=== PATIENT | female | born 1945 | race Caucasian/White ===

== ENCOUNTER 2024-10-13 11:57 | Inpatient (IN) | payer MEDICARE, OTHER ==
[~2024-10-13] VITALS: Ht 165.1 cm; Wt 101.2 kg
[2024-10-13 13:52] LABS: BASOPHILS % (AUTO) 0.4 % (0.0-2.0); EOSINOPHILS % (AUTO) 1.7 % (1.0-6.0); HEMATOCRIT 43.9 % (36-46); HEMOGLOBIN 14.4 g/dL (12.0-16.0); LYMPHOCYTES # (AUTO) 1.6 K/uL (1.0-4.8); LYMPHOCYTES % (AUTO) 26.6 % (22.0-44.0); MEAN CORPUSCULAR HEMOGLOBIN 29.4 pg (26.0-34.0); MEAN CORPUSCULAR HGB CONC 32.9 G/dL (31.0-37.0); MEAN CORPUSCULAR VOLUME 89 fL (80-100); MONOCYTES # (AUTO) 0.4 K/uL (0.1-1.0); MONOCYTES % (AUTO) 7.2 % (2.0-9.0); NEUTROPHILS # (AUTO) 3.9 K/uL (1.8-7.7); NEUTROPHILS % (AUTO) 64.1 % (40.0-70.0); PLATELET COUNT (AUTO) 210 K/uL (150-450); RED BLOOD CELL COUNT(AUTO) 4.91 MIL/uL (4.00-5.20); RED CELL DISTRIBUTION WIDTH 14.2 % (11.5-14.5)
[2024-10-13 13:58] LABS: ANION GAP 5 mmol/L (8-16); CALCIUM, TOTAL 9.7 mg/dL (8.8-10.5); CARBON DIOXIDE 30 mmol/L (22-29); CHLORIDE 108 mmol/L (98-107); CREATININE 0.57 mg/dL (0.60-1.30); GLOMERULAR FILTR. RATE CALC > 60 mL/min (>60); GLUCOSE,RANDOM 121 mg/dL (70-110); POTASSIUM 4.4 mmol/L (3.5-5.1); SODIUM SERUM 143 mmol/L (136-145); UREA NITROGEN, BLOOD 25 mg/dL (7-18)
[2024-10-13 14:03] LABS: APPEARANCE,URINE CLEAR (CLEAR); BILIRUBIN,URINE NEGATIVE (NEGATIVE); COLOR,URINE LIGHT YELLOW (YELLOW); GLUCOSE, URINE (UA) NEGATIVE (NEGATIVE); KETONES,URINE NEGATIVE (NEGATIVE); LEUKOCYTE ESTERASE ,URINE SMALL (NEGATIVE); NITRATE,URINE NEGATIVE (NEGATIVE); OCCULT BLOOD,URINE TRACE (NEGATIVE); PROTEIN,URINE NEGATIVE (NEGATIVE); SPECIFIC GRAVITIY, URINE 1.011 (1.003-1.030); UROBILINOGEN,URINE <=1.0 mg/dL (<=1.0)
[2024-10-13 14:06] LABS: ALBUMIN 3.1 g/dL (3.4-5.0); B-TYPE NATRIURETIC PEPTIDE 44 pg/mL (0-100); BILIRUBIN,DIRECT 0.1 mg/dL (0.00-0.20); BILIRUBIN,TOTAL 0.5 mg/dL (0.1-1.0)
[2024-10-13 14:07] LABS: BACTERIA,URINE Moderate /HPF (None Seen); RBC,URINE 0-2 /HPF (0-2)
[2024-10-13 14:13] LABS: CREATINE KINASE, TOTAL ONLY 47 U/L (26-192); TROPONIN I-HIGH SENSITIVITY 5 ng/L (<51)
[2024-10-13] MEDS: CefTRIAXone 1 GM/DEXTROSE 50 ML IV ONE (14:41)
[2024-10-13 14:45] LABS: PROTHROMBIN TIME 10.8 SEC (9.4-11.6)
[2024-10-13 17:19] VITALS: BP 112/90; PULSE 66; RESP 18; TEMP 97.5; O2SAT 99
[2024-10-13] MEDS: ACETAMINOPHEN 500 MG TABLET PO ONE (18:22)
[2024-10-13 19:35] VITALS: BP 105/71; PULSE 78; RESP 18; TEMP 97.7; O2SAT 97
[2024-10-13] MEDS: ACETAMINOPHEN 650 MG/20.3 ML SOLUTION UDCUP PO PRN (20:45)
[2024-10-13] MEDS ORDERED: ONDANSETRON HCL 4 MG/2 ML VIAL IVP PRN (21:15)
[2024-10-13 23:06] VITALS: BP 103/79; PULSE 64; RESP 18; TEMP 98.1; O2SAT 97
[2024-10-14 03:02] LABS: TROPONIN I-HIGH SENSITIVITY 4 ng/L (<51)
[2024-10-14 03:31] VITALS: BP 94/50; PULSE 77; RESP 18; TEMP 97.7; O2SAT 97
[2024-10-14 07:00] LABS: BASOPHILS % (AUTO) 0.6 % (0.0-2.0); EOSINOPHILS % (AUTO) 2.8 % (1.0-6.0); HEMATOCRIT 40.6 % (36-46); HEMOGLOBIN 13.5 g/dL (12.0-16.0); LYMPHOCYTES # (AUTO) 1.9 K/uL (1.0-4.8); LYMPHOCYTES % (AUTO) 31.8 % (22.0-44.0); MEAN CORPUSCULAR HEMOGLOBIN 29.8 pg (26.0-34.0); MEAN CORPUSCULAR HGB CONC 33.3 G/dL (31.0-37.0); MEAN CORPUSCULAR VOLUME 89 fL (80-100); MONOCYTES # (AUTO) 0.5 K/uL (0.1-1.0); NEUTROPHILS # (AUTO) 3.3 K/uL (1.8-7.7); NEUTROPHILS % (AUTO) 55.8 % (40.0-70.0); PLATELET COUNT (AUTO) 201 K/uL (150-450); RED BLOOD CELL COUNT(AUTO) 4.55 MIL/uL (4.00-5.20)
[2024-10-14 07:42] LABS: ALANINE AMINOTRANSFERASE 11 U/L (12-78); ALBUMIN 2.8 g/dL (3.4-5.0); ALKALINE PHOSPHATASE 69 U/L (46-116); ANION GAP 6 mmol/L (8-16); ASPARTATE AMINOTRANSFERASE 9 U/L (15-37); BILIRUBIN,TOTAL 0.3 mg/dL (0.1-1.0); CALCIUM, TOTAL 9.4 mg/dL (8.8-10.5); CARBON DIOXIDE 27 mmol/L (22-29); CHLORIDE 106 mmol/L (98-107); CHOL/HDL RATIO 3.1 (3.9-5.7); CHOLESTEROL 157 mg/dL (131-200); CREATININE 0.69 mg/dL (0.60-1.30); GLOMERULAR FILTR. RATE CALC > 60 mL/min (>60); GLUCOSE,RANDOM 105 mg/dL (70-110); HDL CHOLESTEROL 50 mg/dL (40-60); LDL CHOL (CALC.) 92 mg/dL (0-130); POTASSIUM 4.5 mmol/L (3.5-5.1); SODIUM SERUM 139 mmol/L (136-145); THYROID STIMULATING HORMONE 2.58 uIU/mL (0.36-3.74); TOTAL PROTEIN, SERUM 5.5 g/dL (6.4-8.2); TRIGLYCERIDES 75 mg/dL (15-150); UREA NITROGEN, BLOOD 31 mg/dL (7-18)
[2024-10-14 07:44] VITALS: BP 115/55; PULSE 59; RESP 19; TEMP 98; O2SAT 98
[2024-10-14] MEDS: ENOXAPARIN SODIUM 40 MG/0.4 ML PF SYRINGE SQ SCH (08:35)
[2024-10-14 10:07] LABS: TROPONIN I-HIGH SENSITIVITY 4 ng/L (<51)
[2024-10-14 11:00] VITALS: BP 100/55; PULSE 81; RESP 19; TEMP 98.2; O2SAT 96
[2024-10-14] MEDS: CefTRIAXone 1 GM/DEXTROSE 50 ML IV SCH (13:06)
[2024-10-14] MEDS ORDERED: SODIUM CHLORIDE 0.9% 1,000 ML ONE (13:07)
[2024-10-14 16:00] LABS: TROPONIN I-HIGH SENSITIVITY 4 ng/L (<51)
[2024-10-14 16:25] VITALS: BP 102/51; PULSE 72; RESP 18; TEMP 98; O2SAT 97
[2024-10-14] MEDS: MIRTAZAPINE 15 MG TABLET PO SCH (20:35)
[2024-10-14] MEDS: APIXABAN 5 MG TABLET PO SCH (20:35)
[2024-10-14 22:49] VITALS: BP 119/71; PULSE 72; RESP 19; TEMP 97.5; O2SAT 97
[2024-10-15 00:07] VITALS: BP 102/72; PULSE 77; RESP 18; TEMP 97.3; O2SAT 98
[2024-10-15 06:58] VITALS: BP 124/74; PULSE 67; RESP 16; TEMP 97.1; O2SAT 97
[2024-10-15 07:15] VITALS: BP 99/69; PULSE 58; RESP 18; TEMP 97.3; O2SAT 97
[2024-10-15 11:35] VITALS: BP 98/65; PULSE 71; RESP 18; TEMP 97.5; O2SAT 97
[2024-10-15 15:54] VITALS: BP 101/68; PULSE 65; RESP 18; TEMP 98.1; O2SAT 98
[2024-10-15 20:23] VITALS: BP 105/70; PULSE 64; RESP 18; TEMP 97.5; O2SAT 100
[2024-10-15] MEDS: MELATONIN 3 MG TABLET PO PRN (23:05)
[2024-10-16] VITALS (7 sets, daily range): BP systolic 99–123; BP diastolic 56–108; PULSE 60–85; RESP 18; TEMP 97.5–98.1; O2SAT 95–100
[2024-10-17 03:36] VITALS: BP 103/65; PULSE 71; RESP 18; TEMP 97.5; O2SAT 97
[2024-10-17 07:35] LABS: BASOPHILS % (AUTO) 0.3 % (0.0-2.0); EOSINOPHILS % (AUTO) 2.6 % (1.0-6.0); HEMATOCRIT 42.3 % (36-46); HEMOGLOBIN 14.2 g/dL (12.0-16.0); LYMPHOCYTES # (AUTO) 1.7 K/uL (1.0-4.8); LYMPHOCYTES % (AUTO) 22.3 % (22.0-44.0); MEAN CORPUSCULAR HEMOGLOBIN 29.9 pg (26.0-34.0); MEAN CORPUSCULAR HGB CONC 33.6 G/dL (31.0-37.0); MEAN CORPUSCULAR VOLUME 89 fL (80-100); MONOCYTES # (AUTO) 0.7 K/uL (0.1-1.0); MONOCYTES % (AUTO) 9.1 % (2.0-9.0); NEUTROPHILS # (AUTO) 4.9 K/uL (1.8-7.7); NEUTROPHILS % (AUTO) 65.7 % (40.0-70.0); PLATELET COUNT (AUTO) 211 K/uL (150-450); RED BLOOD CELL COUNT(AUTO) 4.75 MIL/uL (4.00-5.20); RED CELL DISTRIBUTION WIDTH 13.9 % (11.5-14.5); WHITE BLOOD COUNT (AUTO) 7.5 K/uL (4.5-11.0)
[2024-10-17 07:42] LABS: ANION GAP 5 mmol/L (8-16); CARBON DIOXIDE 28 mmol/L (22-29); CHLORIDE 105 mmol/L (98-107); CREATININE 0.59 mg/dL (0.60-1.30); GLUCOSE,RANDOM 108 mg/dL (70-110); POTASSIUM 4.5 mmol/L (3.5-5.1); SODIUM SERUM 138 mmol/L (136-145); UREA NITROGEN, BLOOD 20 mg/dL (7-18)
[2024-10-17 07:43] LABS: CALCIUM, TOTAL 9.2 mg/dL (8.8-10.5); GLOMERULAR FILTR. RATE CALC > 60 mL/min (>60)
[2024-10-17] MEDS ORDERED: ACET650S39 PO (09:26)
[2024-10-17] MEDS ORDERED: MELA3TAB89 PO (09:26)
[2024-10-17] MEDS ORDERED: APIX5TAB PO (09:26)
[2024-10-17] MEDS ORDERED: SULF1TAB42 PO (09:26)
[2024-10-17] MEDS ORDERED: MIRT-89 PO (09:26)
[2024-10-17 12:00] VITALS: BP 100/66; PULSE 98; RESP 18; TEMP 98.4; O2SAT 98
[2024-10-17 16:00] VITALS: BP 102/68; PULSE 88; RESP 18; TEMP 98.2; O2SAT 98
[2024-10-17 20:19] VITALS: BP 109/66; PULSE 93; RESP 18; TEMP 97.7; O2SAT 97
[2024-10-18 00:11] VITALS: BP 123/78; PULSE 80; RESP 18; TEMP 97.7; O2SAT 99
[2024-10-18 05:04] VITALS: BP 118/77; PULSE 71; RESP 17; TEMP 97.7; O2SAT 100
[2024-10-18 07:50] VITALS: BP 110/66; PULSE 66; RESP 18; TEMP 97.7; O2SAT 97
[2024-10-18 11:24] VITALS: BP 117/82; PULSE 85; RESP 17; TEMP 97.4; O2SAT 98
[2024-10-18 15:53] VITALS: BP 103/63; PULSE 68; RESP 18; TEMP 97.5; O2SAT 98
[2024-10-18 20:00] VITALS: BP 106/75; PULSE 71; RESP 18; TEMP 97.7; O2SAT 98
[2024-10-19] VITALS: BP 125/95; PULSE 79; RESP 16; TEMP 97.9; O2SAT 100
[2024-10-19 04:00] VITALS: BP 121/77; PULSE 71; RESP 16; TEMP 98.2; O2SAT 100
[2024-10-19 08:05] VITALS: BP 103/76; PULSE 77; RESP 18; TEMP 97.9; O2SAT 98
[2024-10-19 11:23] VITALS: BP 104/69; PULSE 82; RESP 19; TEMP 98.1; O2SAT 97
[2024-10-19 17:15] VITALS: BP 115/73; PULSE 83; RESP 18; TEMP 98.2; O2SAT 100
== END 2024-10-19 19:32 | DRG 689 ==
LOC: EMS 12:00 → EDH 13:49 → 5S 16:40
PROVIDERS: ADMIT Family Medicine; ATTEND Family Medicine
DX: N39.0 Urinary tract infection, site not specified (principal); G93.41 Metabolic encephalopathy; F03.93 Unspecified dementia, unspecified severity, with mood disturbance; F33.2 Major depressive disorder, recurrent severe without psychotic features; I48.91 Unspecified atrial fibrillation; E11.9 Type 2 diabetes mellitus without complications; I10 Essential (primary) hypertension; R62.7 Adult failure to thrive; F41.9 Anxiety disorder, unspecified; Z87.891 Personal history of nicotine dependence
CPT/HCPCS: 71045; 80048; 80053; 80061; 80076; 81001; 82550; 83735; 83880; 84443; 84484; 85025; 85610; 85730; 87077; 87086; 87186; 93005; 93306; 96365; 97162; 97167; 97530; 97535; 99285; J0696; J1650; J7030; 36415-L1; 36415-TC